=== PATIENT | male | born 1975 | race Caucasian/White ===

== ENCOUNTER 2017-02-25 16:51 | Emergency (ER) | payer BC, MEDICAID ==
[2017-02-25] MEDS ORDERED: NORMAL SALINE 1000 ML 1,000 ML IV PRN (18:47)
--- NOTE | 2017-02-25 18:49 | ER Document Report ---
ED Dizziness/Weakness - General Chief Complaint: Near Syncope Stated Complaint: POSSIBLE DEYDRATION Time Seen by Provider: 02/25/17 18:45 Mode of Arrival: Wheelchair Information source: Patient TRAVEL OUTSIDE OF THE [place] IN LAST 30 DAYS: No - HPI Patient complains to provider of: Dizziness, Near-syncope Onset: Just prior to arrival Onset/Duration: Gradual Quality of pain: No pain Associated symptoms: Lightheaded Baseline gait: Walks w/o assistance Notes: Patient is a 41-year-old male who presents to the emergency room via EMS after a near syncopal episode, patient and his daughter both donated plasma earlier in the day, he admits that he did not prepare very well for it he did not eat or drink sufficiently prior to donation, they were at the store when he started feeling lightheaded and dizzy, he did not have any actual syncope, at time of evaluation he reports feeling much better, he denies any pain - Related Data Allergies/Adverse Reactions: No Known Allergies Allergy (Verified 02/25/17 17:05) Past Medical History - General Information source: Patient - Social History Smoking Status: Never Smoker Chew tobacco use (# tins/day): No Frequency of alcohol use: None Drug Abuse: None Family History: Reviewed & Not Pertinent Patient has suicidal ideation: No Patient has homicidal ideation: No - Past Medical History Cardiac Medical History: Denies: Hx Coronary Artery Disease, Hx Heart Attack, Hx Hypertension Pulmonary Medical History: Denies: Hx Asthma, Hx Bronchitis, Hx COPD, Hx Pneumonia Neurological Medical History: Denies: Hx Cerebrovascular Accident, Hx Seizures Renal/ Medical History: Reports: Hx Kidney Stones. Denies: Hx Peritoneal Dialysis GI Medical History: Musculoskeltal Medical History: Denies Hx Arthritis Infectious Medical History: Past Surgical History: Reports: Hx Cholecystectomy, Hx Kidney (Renal Surgery). Denies: Hx Pacemaker - Immunizations Hx Diphtheria, Pertussis, Tetanus Vaccination: Yes - 2008 Review of Systems - Review of Systems Constitutional: No symptoms reported EENT: No symptoms reported Cardiovascular: Dizziness, Lightheaded Respiratory: No symptoms reported Gastrointestinal: No symptoms reported Genitourinary: No symptoms reported Male Genitourinary: No symptoms reported Musculoskeletal: No symptoms reported Skin: No symptoms reported Hematologic/Lymphatic: No symptoms reported Neurological/Psychological: No symptoms reported -: Yes All other systems reviewed and negative Physical Exam - Vital signs Vitals: Temp Pulse Resp BP Pulse Ox 98.2 F 69 20 100/64 96 02/25/17 17:09 02/25/17 17:09 02/25/17 17:09 02/25/17 17:09 02/25/17 17:09 Interpretation: Normal - General General appearance: Appears well, Alert - HEENT Head: Normocephalic, Atraumatic Eyes: Normal Pupils: PERRL - Respiratory Respiratory status: No respiratory distress Chest status: Nontender Breath sounds: Normal Chest palpation: Normal - Cardiovascular Rhythm: Regular Heart sounds: Normal auscultation Murmur: No - Abdominal Inspection: Normal Distension: No distension Bowel sounds: Normal Tenderness: Nontender Organomegaly: No organomegaly - Back Back: Normal, Nontender - Extremities General upper extremity: Normal inspection, Nontender, Normal color, Normal ROM , Normal temperature General lower extremity: Normal inspection, Nontender, Normal color, Normal ROM , Normal temperature, Normal weight bearing. No: Joy's sign - Neurological Neuro grossly intact: Yes Cognition: Normal Orientation: AAOx4 Deandre Coma Scale Eye Opening: Spontaneous [place] Coma Scale Verbal: Oriented [place] Coma Scale Motor: Obeys Commands [place] Coma Scale Total: 15 Speech: Normal Motor strength normal: LUE, RUE, LLE, RLE Sensory: Normal - Psychological Associated symptoms: Normal affect, Normal mood - Skin Skin Temperature: Warm Skin Moisture: Dry Skin Color: Normal Course - Re-evaluation Re-evalutation: 02/25/17 20:43 41-year-old male with near syncope after donating plasma early in the day, he admits to not eating or drinking well prior to donating plasma and he has not donated quite some time previous to today, at time of evaluation he reports feeling much better, he declined having blood work drawn, but was agreeable to receiving IV fluids, continues to remain symptom-free and able to ambulate in the emergency room without difficulty, he will be discharged with instructions for follow-up and advised to return if any additional concerns, patient acknowledges understanding and agreement with this plan - Vital Signs Vital signs: Temp Pulse Resp BP Pulse Ox 98.2 F 69 20 100/64 96 02/25/17 17:09 02/25/17 17:09 02/25/17 17:09 02/25/17 17:09 02/25/17 17:09 Discharge - Discharge Clinical Impression: Near syncope Condition: Stable Disposition: HOME, SELF-CARE Instructions: Near Syncopal Episode ([facility]) Additional Instructions: Follow up with your primary care provider in one to 2 days. Return to the emergency room immediately if symptoms worsen or any additional concerns.
[2017-02-25 21:16] VITALS: BP 123/70
== END 2017-02-25 20:51 | disposition home or self-care (01) ==
LOC: ER 16:51
DX: R55 Syncope and collapse (principal); Z98.890 Other specified postprocedural states
CPT/HCPCS: 99284; 96360; J7030